=== PATIENT | male | born 1945 | race Caucasian/White ===

== ENCOUNTER 2018-03-14 19:24 | Inpatient (IN) | payer MEDICARE ==
[~2018-03-14 19:24] MED LIST: ISOVUE-370 76%-LOCM 1 ML ONE
[2018-03-14 19:45] LABS: #Eosinphils 0.1 thou/uL (0.0-0.7); #Lymphocytes 0.6 thou/uL (1.20-3.40); #Monocytes 0.5 thou/uL (0.11-0.59); #Neutrophils 7.2 thou/uL (1.40-6.50); %Basophils 0.5 % (0.0-1.0); %Eosinophils 0.8 % (0.0-10.0); %Lymphocytes 6.8 % (21.0-51.0); %Monocytes 5.6 % (0.0-10.0); %Neutrophils 86.3 % (42.0-75.0); Hemoglobin 11.1 g/dL (14.0-18.0); Mean Corpuscular HGB CONC 32.2 g/dL (32.0-36.0); Mean Corpuscular Volume 96.4 fL (78.0-98.0); Mean Platelet Volume 8.8 fL (7.4-10.4); Platelet Count 140 thou/uL (130-400); RBC Distribution Width 13.7 % (11.5-14.5); Red Blood Cell (RBC) Count 3.56 mill/uL (4.70-6.10); White Blood Cell (WBC) Count 8.3 thou/uL (4.8-10.8)
--- NOTE | 2018-03-14 19:45 | CT ---
CT BRAIN NONCONTRAST: DATE: 03/14/18 TIME: 7:30 p.m. HISTORY: 72-year-old male with acute stroke: Right sided facial droop and right facial paresis. Aphasia. Dr. Gamez gave verbal report for the stroke activation protocol to Dr. Nielsen of the Emergency Depart ment at 7:37 p.m. on 03/14/18. FINDINGS: There is no midline shift or any other mass effect. There is no evidence of acute intracranial hemor rhage, large cortical infarct, obstructive hydrocephalus, or extraaxial fluid collection. The calvar ium is intact. The bifrontal extra-axial spaces are enlarged, probably due to bilateral frontal lobe atrophy. IMPRESSION: No acute intracranial findings. Code HORTENCIA jn r POS: LADONNA
[2018-03-14 19:52] LABS: INR-International Normal Ratio 1.1; PTT 31.9 SEC (22.9-36.1); Prothrombin Time 14.1 SEC (12.0-14.7)
[2018-03-14 19:57] LABS: ALT (SGPT) 56 U/L (8-55); AST (SGOT) 25 U/L (5-34); Albumin 3.9 g/dL (3.4-4.8); Alkaline Phosphatase 105 U/L (40-150); Anion Gap 14 mmol/L (10-20); BUN (Urea Nitrogen) 16 mg/dL (8.4-25.7); Bilirubin, Total 1.2 mg/dL (0.2-1.2); Calc. Creatinine Clearance 0 mL/min (70-130); Calcium 9.4 mg/dL (7.8-10.44); Carbon Dioxide 27 mmol/L (23-31); Chloride 101 mmol/L (98-107); Estimated GFR-MDRD 75; Globulin 2.9 g/dL (2.4-3.5); Glucose 146 mg/dL (83-110); Potassium 3.3 mmol/L (3.5-5.1); Protein, Total 6.8 g/dL (5.8-8.1); Sodium 139 mmol/L (136-145)
[2018-03-14 20:01] LABS: CKMB 0.6 ng/mL (0-6.6); Troponin I Less than 0.010 ng/mL (< 0.028)
--- NOTE | 2018-03-14 21:34 | CT ---
CT ANGIOGRAM HEAD WITH CONTRAST CT ANGIOGRAM NECK WITH CONTRAST: DATE: 03/14/18 TIME: 8:39 p.m. HISTORY: 72-year-old male with acute stroke: right sided facial droop, right sided paralysis and aphasia. The patient is currently receiving IV TPA therapy. The findings for this stroke protocol study were called to Dr. Nielsen at 9:15 p.m. on 03/14/18. TECHNIQUE: IV contrast injection of Isovue. Arterial bolus chasing technique scan performed of the neck and head, to the vertex or the scalp. Unf ortunately, the scan does not include the aortic arch and does not include the origins of the brachio cephalic artery, left common carotid artery, or the left subclavian artery. Coronal and sagittal 3D MIP reconstructions. FINDINGS: There are bilateral pleural effusions that reach the lung apices. There are mild ground glass densiti es at the apical segments of bilateral upper lobes, probably representing pulmonary edema. No occlusion or high grade stenosis identified involving the visualized portions of the brachiocephal ic, left common carotid, or left subclavian, arteries (but there origins were not included on the sca n). There is multifocal calcified plaque in multiple major arteries. This includes the proximal left subclavian artery which causes mild stenosis. Also, streak artifact from dense contrast material in t he adjacent right subclavian vein partially obscures the proximal right common carotid artery. Prominent calcified plaque at the right carotid bulb causes approximately 75% stenosis of the origin of the right internal carotid (best appreciated on coronal image 57 of 102, series 300). The mid cerv ical portion of the right internal carotid artery takes a hairpin, tortuous turn. Heavy atherosclerotic calcification of right carotid siphon. No thrombus identified in the right murray tid siphon or M1 segment of right middle cerebral artery. Visualized portions of left common carotid artery demonstrate no high grade stenosis. There is calcif ied and noncalcified plaque at the left carotid bulb. There is approximately 50% stenosis at the orig in of the left external carotid artery. There is also an estimated 50% stenosis at the origin of the left internal carotid artery. Heavy atherosclerotic calcification of left carotid siphon makes it difficult to evaluate the caliber of the lumen there. No thrombus or occlusion or M1 segment of left middle cerebral artery identified . There is a gap in the contrast opacification of the origins of one or more branches of the trifurca tion of the left middle cerebral artery, probably representing acute thrombosis. Alternatively, this could be chronic severe stenoses. There is nonopacification of the proximal aspect of the cervical right vertebral artery. There is rec onstitution of the distal cervical portion of the right vertebral artery, presumably by muscular bran ch collateral vessels. No occlusion or severe stenosis of the contralateral left cervical vertebral artery. However, the pro ximal intracranial segment of the left vertebral artery does have filling defect surrounded by athero sclerotic calcification prior to its termination in PICA. No occlusion of the basilar artery or the p roximal aspects of the bilateral posterior cerebral and superior cerebellar arteries. IMPRESSION: 1. Probable thrombosis involving the proximal branches of the left middle cerebral artery trifur cation, but not involving M1 segment of the middle cerebral artery. 2. Severe, approximately 75% stenosis at origin of right internal carotid artery. 3. Approximately 50% stenosis at origin of left internal carotid artery. 4. 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 The distal right vertebral ar prudencio is reconstituted via muscular branches. 5. Left vertebral artery terminates in PICA (posterior-inferior cerebellar artery) where it appe ars to be probably chronically completely or partially occluded. 6. Bilateral pleural effusions and probable pulmonary edema. 7. The origins of the great vessels, and the entire aortic arch, were excluded from this study. POS: LADONNA
[2018-03-14] MEDS ORDERED: Acetaminophen 325 MG TAB PO PRN (21:57)
[2018-03-14] MEDS ORDERED: Ondansetron HCl/PF 4 MG/2 ML Vial IVP PRN (23:25)
[2018-03-14] MEDS ORDERED: Ondansetron ODT 4 MG TAB SL PRN (23:25)
[2018-03-14 23:38] VITALS: BMI 23.8
[2018-03-15] MEDS: Labetalol HCl 100 MG/20 ML VIAL SLOW IVP PRN ×3 (01:51→09:42)
--- NOTE | 2018-03-15 07:54 | HP ---
PRIMARY CARE PHYSICIAN: Out of town physician. CODE STATUS: FULL code. TIME OF EVALUATION: 9:50 p.m. CHIEF COMPLAINT: Right leg numbness and right-sided facial droop. HISTORY OF PRESENT ILLNESS: This is a 72-year-old male patient with past medical history of hypertension, AFib. The patient was on anticoagulation, had to be stopped since the patient had AV malformation and had GI bleeding recently. The patient in the afternoon was with his in the backyard. The noticed that suddenly something had changed to her , was unable to speak. He was not understanding what she was saying, not following her commands , and was unable to stand up. Then, she called 911. When they got to the scene , they found the patient has slurred speech and right-sided weakness. The patient was brought to the hospital. Symptoms were severe. The patient was diagnosed with acute stroke. Protocol was followed. The patient received tPA. No clear triggers, no alleviating factors. There were some findings positive for thrombosis on the CT angio. Dr. Ragsdale was consulted, decision was for not to go for any acute intervention at this point. We will follow recommendations from him. They are going to see the patient in the morning. The patient tolerated well tPA as of now. REVIEW OF SYSTEMS: Unable to obtain, the patient is aphasic. PAST MEDICAL HISTORY: History of AFib, hypertension, congestive heart failure, hyperlipidemia, chronic kidney disease. PAST SURGICAL HISTORY: Stomach surgery, cardiac stent, cholecystectomy. PSYCHIATRIC HISTORY: No previous psychiatric history. SOCIAL HISTORY: The patient drinks socially, former drinker. No drug use. Former cigarette user. He quit smoking more than 10 years ago. ALLERGIES: No known drug allergies. MEDICATIONS: Protonix 20 mg daily; folic acid 1 mg once daily; Lipitor 10 mg daily; metoprolol 50 mg extended release daily; digoxin 125 mcg once a day; allopurinol 300 mg once a day; Martha 180 mg as needed; diltiazem 24 hours extended-release capsule, the patient has 180 mg daily; Plavix 75 mg once a day ; ferrous sulfate 325 mg daily. PHYSICAL EXAMINATION: VITAL SIGNS: On presentation, blood pressure 162/101, heart rate 84, respiratory rate 16, temperature 98.1. GENERAL: The patient is alert, still having slurred speech, but after tPA was given, family is reporting that the patient seems to be improving since he was unable to understand in the beginning and now the patient follows commands. HEENT: Eyes, normal conjunctivae. Moist oral mucosa. RESPIRATORY: Bilateral air entry. No rales, no wheezing. Symmetric expansion. CARDIOVASCULAR: Normal rate, regular rhythm. No murmurs, no gallop, no edema. ABDOMEN: Soft. Normal bowel sounds. MUSCULOSKELETAL: Baseline range of motion and strength. No tenderness. SKIN: Warm and intact. No pallor, no rash, no redness. NEUROLOGIC: The patient was examined. The patient has recovered right lower extremity strength. Testing of the right upper extremity showed that he is having some weakness. The patient is still having aphasia. LABORATORY DATA: Reviewed. The patient had a white count of 9.3, hemoglobin 11.1, MCV 96.4, platelet count 140. Coagulation: PT 14.1, INR 1.1, PTT 31.9. Chemistry: The patient has sodium 139, potassium 3.3, chloride 101, carbon dioxide 27, anion gap 14, BUN 16, creatinine 0.98, GFR 75, glucose 146, ALT 56. Rest of LFTs are normal. RADIOLOGY REPORT: CT head was negative. No bleeding. CT angio showed carotid trifurcation of left coronary artery in one segment, diffuse carotid stenosis. ASSESSMENT AND PLAN: 1. Acute ischemic stroke, presentation with right-sided weakness and slurred speech. The patient received tPA. The patient is going to ICU for post-tPA monitoring. We will monitor blood pressure. The patient has tolerated well treatment. Neurosurgery to see the patient in the morning will follow recommendations , Neuro to see the patient as per protocol,will follow recommendations. 2. Hypertensive urgency. We will monitor blood pressure in ICU. We will try to keep it below 160/100 with IV p.r.n. medications. 3. Atrial fibrillation, rate and rhythm controlled. We will monitor. We will adjust treatment as needed. 4. History of arteriovenous malformation. At this point, we will not reconcile long-term anticoagulation, this decision is to be made after the patient is more stable. 5. Reportedly, history of congestive heart failure. Reconcile home medications. Adjust treatment as needed. 6. Hyperlipidemia. Advised to eat healthy, low-cholesterol diet. Reconcile home meds. 7. Deep venous thrombosis prophylaxis. 8. Hypokalemia. This is mild, potassium 3.3. Replace electrolytes as needed. 9. Chronic normocytic anemia. Hemoglobin 11.1, MCV is normal. I will have follow up as outpatient. No need for any acute intervention at this point. high risk due to tpa, acute stroke symtpoms, needing icu monitoring more than 35 min used at bedside, coordination of care, adn review and elaboration of records. MTDD
--- NOTE | 2018-03-15 09:47 | CON ---
DATE OF CONSULTATION: 03/15/2018 70 minutes time spent on consultation, of that time, greater than 50% of the time was spent with the patient and/or on the patient's unit in the hospital. . HISTORY OF PRESENT ILLNESS: This is a 72-year-old male who presented yesterday with an acute thrombo tic left MCA distribution stroke. He received t-PA. He has recovered right-sided weakness, but has persistent expressive aphasia. This is his first stroke. His tells me that he was diagnosed wi th a stomach AVM last month and the station tender made a difficult decision to hold his anticoag ulation. The patient has a history of atrial fibrillation and has been on Xarelto as well as rate co ntrol for that. PAST MEDICAL HISTORY: 1. Atrial fibrillation. 2. Gastric arteriovenous malformation. 3. Congestive heart failure. 4. Hyperlipidemia. 5. Chronic kidney disease. PAST SURGICAL HISTORY: 1. EGD. 2. Cardiac stent. 3. Cholecystectomy. SOCIAL HISTORY: He occasionally drinks alcohol. Former smoker, quit more than 10 years ago. ALLERGIES: None. MEDICATIONS PRIOR TO ADMISSION: Protonix, Lipitor, metoprolol, digoxin, allopurinol, Martha, dilti azem, Plavix, iron sulfate and aspirin. REVIEW OF SYSTEMS: Cannot be obtained due to the patient's expressive aphasia. PHYSICAL EXAMINATION: VITAL SIGNS: Temperature 98.1, pulse 83, blood pressure 154/77. GENERAL: He is awake and alert, follows commands appropriately, but cannot verbalize very well. HEENT: His cranial nerves II-XII are intact. Oropharynx is clear. NECK: No JVD. LUNGS: Clear. CARDIAC: S1, S2, slightly tachycardic. Irregularly irregular. ABDOMEN: Soft, nontender, nondistended. EXTREMITIES: No clubbing, cyanosis, or edema. NEUROLOGIC: He can move all 4 extremities. I do not detect any weakness other than his aphasic spee ch. LABORATORY DATA: White blood cell count 8.3, hematocrit 34.3, platelet count 140. INR 1.1. Sodium 139, potassium 3.3, chloride 101, CO2 27, BUN 16, creatinine 0.9, glucose 146. ASSESSMENT: 1. Acute left middle cerebral artery thrombotic stroke. 2. Chronic atrial fibrillation. 3. Recent colonic arteriovenous malformation. DISCUSSION: This could be an embolic stroke given the patient's history of atrial fibrillation and b eing off his usual anticoagulation with Xarelto. PLAN: 1. Continue to monitor in CCU today. 2. Resume whichever anticoagulant Neurology recommends. 3. Limit time out of bed for the time being. 4. Initiate stroke rehabilitation. 5. Resume antihypertensives.
--- NOTE | 2018-03-15 09:51 | PDOC.PN ---
- Subjective Encounter Start Date: 03/15/18 (f/u stroke) Encounter Start Time: 09:49 Subjective: s/p tpa that ended at 20;04 last night. Pt with aphasia and -: ataxia. He demonstrates understanding. He nods no with -: questions about pain - Objective Vital Signs & Weight: Vital Signs (12 hours) Temp Pulse Resp BP Pulse Ox 03/15/18 08:00 98.1 F 03/15/18 05:48 85 161/76 H 03/15/18 04:00 98.7 F 03/15/18 01:51 85 162/77 H 03/15/18 01:04 95 03/15/18 00:23 98.4 F 75 14 95 03/15/18 00:00 98.6 F Most Recent Monitor Data Heart Rate from ECG 83 NIBP 154/77 NIBP BP-Mean 109 Respiration from ECG 16 SpO2 96 I&O: 03/14/18 03/15/18 03/16/18 06:59 06:59 06:59 Output Total 650 0 Balance -650 0 Result Diagrams: 03/14/18 19:35 03/14/18 19:35 EKG Reviewed by me: Yes (tele - a fib 60-80's) Phys Exam - Physical Examination Constitutional: NAD Respiratory: no wheezing, no rales, no rhonchi Cardiovascular: no significant murmur, irregular Gastrointestinal: soft, non-tender, no distention, positive bowel sounds Musculoskeletal: no edema, pulses present Neurological: moves all 4 limbs Deviation from normal: responsive to commands, able to say yes/no, awake and alert Skin: no rash Dx/Plan (1) Ischemic cerebrovascular accident (CVA) Code(s): I63.9 - CEREBRAL INFARCTION, UNSPECIFIED Status: Acute (2) Atrial fibrillation Code(s): I48.91 - UNSPECIFIED ATRIAL FIBRILLATION Status: Chronic Qualifiers: Atrial fibrillation type: chronic Qualified Code(s): I48.2 - Chronic atrial fibrillation (3) History of GI bleed Code(s): Z87.19 - PERSONAL HISTORY OF OTHER DISEASES OF THE DIGESTIVE SYSTEM Status: Resolved (4) Hypertension Code(s): I10 - ESSENTIAL (PRIMARY) HYPERTENSION Status: Chronic Qualifiers: Hypertension type: essential hypertension Qualified Code(s): I10 - Essential (primary) hypertension (5) Dyslipidemia Code(s): E78.5 - HYPERLIPIDEMIA, UNSPECIFIED Status: Chronic - Plan * CVA s/p tpa that ended at 20:04 last night * Neurology consult= * continue statin * hold on aspirin until 24 hours, then depending on Neuro recs * stroke team/therapy * A fib - currently rate controlled, continue home meds when able to take PO * resume other home meds when cleared to take po * dvt prophy - scd's due to tpa * gi prophy - not indicated, takes protonix at home * code status Full. * * pt remains at high risk in current condition. Rviewed plan of care with patient/, no questions or further needs at end of eval.
--- NOTE | 2018-03-15 12:38 | RAD ---
PORTABLE AP ABDOMINAL RADIOGRAPH: DATE: 03/15/18. HISTORY: AVM clips. Evaluation prior to MRI. COMPARISON: None available. FINDINGS: Surgical clips overlie the right upper quadrant. There are 2 metallic densities overlying the left u pper quadrant which could also be related to postsurgical changes and clips related to prior surgery, but clinical correlation is recommended. Vascular stent overlies the region of the left common iliac artery. The bowel gas pattern is nonspec ific. Degenerative changes are noted in the spine. IMPRESSION: 1. Linear metallic densities overlying the left upper quadrant which may represent surgical clips re lated to prior surgery in this region, but clinical correlation is recommended. 2. Post cholecystectomy changes. 3. Nonspecific bowel gas pattern with a moderate amount of retained fecal material in the ascending colon. 4. Vascular stent overlying the left common iliac artery. 5. Vascular calcifications. POS: LADONNA
--- NOTE | 2018-03-15 16:18 | PDOC.EVN ---
Event Note - Event Note Event Note: Called by RN - MRI not available as pt has surgical clips in place from hospitalization for GI bleed. Request to the hospital these were placed is being sent to find out if pt can undergo MRI. Will hold on MRI and await Neurology input regarding necessity of this study vs f/u CT scan.
[2018-03-16 05:28] LABS: #Eosinphils 0.1 thou/uL (0.0-0.7); #Lymphocytes 0.6 thou/uL (1.20-3.40); #Monocytes 0.5 thou/uL (0.11-0.59); #Neutrophils 3.6 thou/uL (1.40-6.50); %Basophils 0.5 % (0.0-1.0); %Eosinophils 1.8 % (0.0-10.0); %Lymphocytes 13.1 % (21.0-51.0); %Monocytes 10.1 % (0.0-10.0); %Neutrophils 74.6 % (42.0-75.0); Hemoglobin 10.9 g/dL (14.0-18.0); Mean Corpuscular HGB CONC 31.9 g/dL (32.0-36.0); Mean Corpuscular Hemoglobin 30.5 pg (27.0-31.0); Mean Corpuscular Volume 95.7 fL (78.0-98.0); Platelet Count 121 thou/uL (130-400); RBC Distribution Width 13.7 % (11.5-14.5); Red Blood Cell (RBC) Count 3.57 mill/uL (4.70-6.10); White Blood Cell (WBC) Count 4.8 thou/uL (4.8-10.8)
[2018-03-16 05:47] LABS: ALT (SGPT) 30 U/L (8-55); AST (SGOT) 14 U/L (5-34); Albumin 3.5 g/dL (3.4-4.8); Alkaline Phosphatase 93 U/L (40-150); Anion Gap 12 mmol/L (10-20); BUN (Urea Nitrogen) 11 mg/dL (8.4-25.7); Bilirubin, Total 1.3 mg/dL (0.2-1.2); Calc. Creatinine Clearance 77 mL/min (70-130); Calcium 8.8 mg/dL (7.8-10.44); Carbon Dioxide 30 mmol/L (23-31); Cardiac Risk 3.9 (Less than 4.5); Chloride 100 mmol/L (98-107); Cholesterol 70 mg/dl (< 200 Desired); Estimated GFR-MDRD 76; Globulin 2.7 g/dL (2.4-3.5); Glucose 146 mg/dL (83-110); HDL Cholesterol 18 mg/dL (>60 Neg Risk); LDL Cholesterol, Calculated 38 mg/dL; Potassium 3.4 mmol/L (3.5-5.1); Protein, Total 6.2 g/dL (5.8-8.1); Sodium 139 mmol/L (136-145); Triglycerides 71 mg/dL (Less than 150)
[2018-03-16] MEDS ORDERED: Potassium Chloride 20 MEQ TAB PO SCH (07:45)
--- NOTE | 2018-03-16 07:50 | PRG ---
DATE OF SERVICE: 03/16/2018 SUBJECTIVE: The patient is doing well. He is starting to express himself a little better, but does have periods of expressive aphasia. He says he was cleared to swallow. OBJECTIVE: VITAL SIGNS: Temperature 98.1, pulse 115, blood pressure 145/102. A 24-hour intake 715, output 450. HEENT: Unremarkable. NECK: No JVD. LUNGS: Clear. CARDIAC: S1 and S2 regular. ABDOMEN: Soft, nontender. EXTREMITIES: No edema. NEUROLOGIC: I do not detect any neurologic deficits other than the expressive aphasia. LABORATORY DATA: White blood cell count 4.8, hematocrit 34.1, platelet count 121. INR 1.1. Sodium 139, potassium 3.4, chloride 100, CO2 30, BUN 11, creatinine 0.9, glucose 146. ASSESSMENT: 1. Cerebrovascular accident - left MCA distribution and required TPA. 2. Echo demonstrating sclerotic aortic valve, mitral regurgitation and EF of 50%-55%. RECOMMENDATIONS: I would consider restarting the anticoagulation if okay with Neuro. He will be tra nsferred out to the stroke floor for further care per the primary team and the stroke team. No furth er pulmonary recommendations. We will sign off. Please recall if further assistance is needed.
[2018-03-16] MEDS: Atorvastatin Calcium 10 MG TAB PO SCH (08:32)
[2018-03-16] MEDS: Digoxin 0.125 MG TAB PO SCH (08:32)
[2018-03-16] MEDS: Allopurinol 300 MG TAB PO SCH (08:33)
[2018-03-16] MEDS ORDERED: Clopidogrel Bisulfate 75 MG TAB PO SCH (13:30)
--- NOTE | 2018-03-16 19:23 | PDOC.PN ---
- Subjective Encounter Start Date: 03/16/18 Encounter Start Time: 13:00 Patient seen and examined for acute CVA. No new complaints. No new focal deficits. Some expressive aphasia. No overnight events - Objective Resuscitation Status: Resuscitation Status FULL:Full Resuscitation MAR Reviewed: Yes Vital Signs & Weight: Vital Signs (12 hours) Temp Pulse Pulse Pulse Resp BP BP 03/16/18 15:29 99.4 F 92 20 03/16/18 15:00 99.4 F 92 20 03/16/18 12:00 98.7 F 03/16/18 10:04 105 H 115 H 132/80 141/91 H 03/16/18 08:32 112 H 03/16/18 08:00 98.5 F 112 H 18 BP Pulse Ox 03/16/18 15:29 139/85 95 03/16/18 15:00 03/16/18 12:00 03/16/18 10:04 03/16/18 08:32 03/16/18 08:00 99 Weight Admit Weight 175 lb Weight 175 lb 4.28 oz Most Recent Monitor Data Heart Rate from ECG 86 NIBP 124/100 NIBP BP-Mean 111 Respiration from ECG 20 SpO2 99 I&O: 03/15/18 03/16/18 03/17/18 06:59 06:59 06:59 Intake Total 715 1190 Output Total 650 450 1 Balance -848 173 1830 Result Diagrams: 03/16/18 04:37 03/17/18 07:12 EKG Reviewed by me: Yes (Tele - Afib) Phys Exam - Physical Examination Constitutional: NAD Respiratory: no wheezing, no rales, no rhonchi, clear to auscultation bilateral Cardiovascular: no rub, irregular no heaves/pulsations Gastrointestinal: soft, non-tender, no distention, positive bowel sounds Musculoskeletal: no edema Neurological: non-focal, normal sensation, moves all 4 limbs Exp aphasia Psychiatric: normal affect, A&O x 3 Skin: no rash Dx/Plan (1) Acute CVA (cerebrovascular accident) Code(s): I63.9 - CEREBRAL INFARCTION, UNSPECIFIED Status: Acute Comment: s/ p TPA. Pt was taking Plavix. (2) Chronic a-fib Code(s): I48.2 - CHRONIC ATRIAL FIBRILLATION Status: Chronic (3) Hypertension Code(s): I10 - ESSENTIAL (PRIMARY) HYPERTENSION Status: Chronic Qualifiers: Hypertension type: essential hypertension Qualified Code(s): I10 - Essential (primary) hypertension (4) History of GI bleed Code(s): Z87.19 - PERSONAL HISTORY OF OTHER DISEASES OF THE DIGESTIVE SYSTEM Comment: s/p EGD with AVM clipping on February 22. Xarelto was dced. Started on Plavix Also d/w Dr Stroud (GI) - He recommended to go with Neurology recommendation depending on the benefit and risk (5) Hypokalemia Code(s): E87.6 - HYPOKALEMIA Status: Acute - Plan DVT proph w/SCDs Spouse has EGD report(AVM clips) - Will try to see if MRI brain can be done -: One dose Plavix given earlier today after d/w Dr Whiting -: Restart Xarelto in AM per Dr Whiting, Replace Potassium -: Transfer to stroke unit, Change Cardizem timings to 1200 (home dose) -: Change Toprol XL to 100 QAM and 50 QPM (home dose) Review of Systems - Review of Systems Respiratory: negative: Cough, Dry, Shortness of Breath, Hemoptysis, SOB with Excertion, Pleuritic Pain, Sputum, Wheezing Cardiovascular: negative: chest pain, palpitations, orthopnea, paroxysmal nocturnal dyspnea, edema, light headedness, other - Medications/Allergies Allergies/Adverse Reactions: Allergies Allergy/AdvReac Type Severity Reaction Status Date / Time No Known Drug Allergies Allergy Verified 03/17/18 06:11 Medications: Current Medications Acetaminophen (Tylenol) 650 mg PO Q6H PRN PRN Reason: Headache/Fever or Pain Allopurinol (Zyloprim) 300 mg PO DAILY [facility] Last Admin: 03/16/18 08:33 Dose: 300 mg Atorvastatin Calcium (Lipitor) 10 mg PO DAILY [facility] Last Admin: 03/16/18 08:32 Dose: 10 mg Digoxin (Lanoxin) 0.125 mg PO DAILY [facility] Last Admin: 03/16/18 08:32 Dose: 0.125 mg Diltiazem HCl (Cardizem Cd) 180 mg PO 1200 [facility] Last Admin: 03/16/18 13:25 Dose: Not Given Labetalol HCl (Normodyne) 10 mg SLOW IVP Q2H PRN PRN Reason: SBP > 180 Last Admin: 03/15/18 09:42 Dose: 10 mg Metoprolol Succinate (Toprol Xl) 100 mg PO DAILY [facility] Metoprolol Succinate (Toprol Xl) 50 mg PO HS [facility] Olmesartan (Benicar) 20 mg PO HS [facility] Pantoprazole Sodium (Protonix) 40 mg PO DAILY [facility]
[2018-03-17] MEDS: Rivaroxaban 10 MG TAB PO SCH (06:09)
[2018-03-17 07:50] LABS: Albumin 3.7 g/dL (3.4-4.8); Anion Gap 12 mmol/L (10-20); BUN (Urea Nitrogen) 11 mg/dL (8.4-25.7); BUN/Creatinine Ratio 12.09; Calc. Creatinine Clearance 83 mL/min (70-130); Calcium 9.2 mg/dL (7.8-10.44); Carbon Dioxide 29 mmol/L (23-31); Chloride 100 mmol/L (98-107); Estimated GFR-MDRD 82; Glucose 163 mg/dL (83-110); Magnesium 1.9 mg/dL (1.6-2.6); Potassium 3.9 mmol/L (3.5-5.1); Sodium 137 mmol/L (136-145)
[2018-03-17 08:14] LABS: #Eosinphils 0.1 thou/uL (0.0-0.7); #Lymphocytes 0.5 thou/uL (1.20-3.40); #Monocytes 0.5 thou/uL (0.11-0.59); #Neutrophils 4.8 thou/uL (1.40-6.50); %Eosinophils 1.3 % (0.0-10.0); %Lymphocytes 8.9 % (21.0-51.0); %Monocytes 8.6 % (0.0-10.0); %Neutrophils 81.2 % (42.0-75.0); Hemoglobin 10.9 g/dL (14.0-18.0); Mean Corpuscular Hemoglobin 31.2 pg (27.0-31.0); Mean Corpuscular Volume 94.6 fL (78.0-98.0); Mean Platelet Volume 8.5 fL (7.4-10.4); Platelet Count 107 thou/uL (130-400); RBC Distribution Width 13.7 % (11.5-14.5); Red Blood Cell (RBC) Count 3.49 mill/uL (4.70-6.10); White Blood Cell (WBC) Count 5.9 thou/uL (4.8-10.8)
[2018-03-17] MEDS: Atorvastatin Calcium 10 MG TAB PO SCH (08:39)
[2018-03-17] MEDS: Digoxin 0.125 MG TAB PO SCH (08:39)
[2018-03-17] MEDS: Allopurinol 300 MG TAB PO SCH (08:40)
[2018-03-17] MEDS ORDERED: traMADol HCl 50 MG TAB PO PRN (13:21)
--- NOTE | 2018-03-17 13:24 | PDOC.PN ---
- Subjective Encounter Start Date: 03/17/18 Encounter Start Time: 13:25 Patient seen and examined. had CVA and is s/p TPA. Doing well. no complaints. Xarelto restarted 03/17/18. - Objective Resuscitation Status: Resuscitation Status FULL:Full Resuscitation MAR Reviewed: Yes Vital Signs & Weight: Vital Signs (12 hours) Temp Pulse Resp BP Pulse Ox 03/17/18 12:00 98.3 F 84 18 161/77 H 96 03/17/18 08:39 76 03/17/18 08:00 99.3 F 61 18 03/17/18 07:40 99.3 F 61 18 156/73 H 93 L 03/17/18 04:00 97.3 F L 93 18 136/80 93 L Weight Admit Weight 175 lb Weight 175 lb 4.28 oz Most Recent Monitor Data Heart Rate from ECG 86 NIBP 124/100 NIBP BP-Mean 111 Respiration from ECG 20 SpO2 99 I&O: 03/16/18 03/17/18 03/18/18 06:59 06:59 06:59 Intake Total 715 1190 Output Total 450 1 Balance 265 1189 Result Diagrams: 03/17/18 07:12 03/17/18 07:12 Phys Exam - Physical Examination Constitutional: NAD HEENT: moist MMs, sclera anicteric Neck: supple, full ROM Respiratory: no wheezing, no rales, no rhonchi, clear to auscultation bilateral Cardiovascular: RRR, no significant murmur, no rub Gastrointestinal: soft, non-tender, no distention, positive bowel sounds Musculoskeletal: no edema, pulses present Neurological: non-focal, moves all 4 limbs + expressive aphasia Psychiatric: normal affect, A&O x 3 Skin: no rash, normal turgor Dx/Plan (1) Ischemic cerebrovascular accident (CVA) Code(s): I63.9 - CEREBRAL INFARCTION, UNSPECIFIED Status: Acute Comment: s/ p TPA. Started on Xarelto. Stable. (2) Atrial fibrillation Code(s): I48.91 - UNSPECIFIED ATRIAL FIBRILLATION Status: Chronic Qualifiers: Atrial fibrillation type: chronic Qualified Code(s): I48.2 - Chronic atrial fibrillation Plan: As above. (3) Dyslipidemia Code(s): E78.5 - HYPERLIPIDEMIA, UNSPECIFIED Status: Chronic (4) History of GI bleed Code(s): Z87.19 - PERSONAL HISTORY OF OTHER DISEASES OF THE DIGESTIVE SYSTEM Status: Chronic Comment: s/p EGD with AVM clipping on February 22. Xarelto was dced then and pt started on Plavix. Xarelto restarted following CVA. (5) Hypertension Code(s): I10 - ESSENTIAL (PRIMARY) HYPERTENSION Status: Chronic Qualifiers: Hypertension type: essential hypertension Qualified Code(s): I10 - Essential (primary) hypertension Comment: Fair control. monitor. - Plan cont current plan of care, out of bed/ambulate * . Review of Systems - Medications/Allergies Allergies/Adverse Reactions: Allergies Allergy/AdvReac Type Severity Reaction Status Date / Time No Known Drug Allergies Allergy Verified 03/17/18 06:11 Medications: Current Medications Acetaminophen (Tylenol) 650 mg PO Q6H PRN PRN Reason: Headache/Fever or Pain Allopurinol (Zyloprim) 300 mg PO DAILY [facility] Last Admin: 03/17/18 08:40 Dose: 300 mg Atorvastatin Calcium (Lipitor) 10 mg PO DAILY [facility] Last Admin: 03/17/18 08:39 Dose: 10 mg Digoxin (Lanoxin) 0.125 mg PO DAILY [facility] Last Admin: 03/17/18 08:39 Dose: 0.125 mg Diltiazem HCl (Cardizem Cd) 180 mg PO 1200 [facility] Last Admin: 03/17/18 11:36 Dose: 180 mg Labetalol HCl (Normodyne) 10 mg SLOW IVP Q2H PRN PRN Reason: SBP > 180 Last Admin: 03/15/18 09:42 Dose: 10 mg Metoprolol Succinate (Toprol Xl) 100 mg PO DAILY [facility] Last Admin: 03/17/18 08:40 Dose: 100 mg Metoprolol Succinate (Toprol Xl) 50 mg PO HS [facility] Last Admin: 03/16/18 21:11 Dose: 50 mg Olmesartan (Benicar) 20 mg PO HS [facility] Last Admin: 03/16/18 21:11 Dose: 20 mg Pantoprazole Sodium (Protonix) 40 mg PO DAILY [facility] Last Admin: 03/17/18 08:40 Dose: 40 mg Rivaroxaban (Xarelto) 20 mg PO 0600 [facility] Last Admin: 03/17/18 06:09 Dose: 20 mg
--- NOTE | 2018-03-17 17:04 | PRG ---
DATE OF SERVICE: 03/17/2018 SERVICE: Pulmonary Medicine INTERVAL HISTORY: The patient is doing great from a respiratory standpoint. He has a little bit of a cough. It happens whenever he is lying down, but it is not associated with exertion or eating. He denies any current fevers, chills, nausea or vomiting. There are no significant overnight events. He is essentially returning to his usual state of health and is still having a little bit of word fin ding difficulties. PHYSICAL EXAMINATION: VITAL SIGNS: Afebrile, pulse 84, blood pressure 161/77, respirations 18, saturation 96% on room air. GENERAL: The patient is awake, alert, no apparent distress. LUNGS: Decent air entry. Dependent crackles are minimal. There is no prolonged expiratory phase pr esent. HEART: Normal rate, regular. ABDOMEN: Soft, nontender, nondistended. Bowel sounds are positive. MUSCULOSKELETAL: No cyanosis or clubbing. No pitting in the bilateral lower extremities. LABORATORY DATA: WBC 5.9, hemoglobin 10.9, platelets 107,000 and gently down trending. INR 1.1. sic metabolic profile is essentially unremarkable. Albumin 3.7. Magnesium and phosphorus fall withi n the normal limits. ASSESSMENT: Cerebrovascular accident, status post TPA. DISCUSSION AND PLAN: At this point, the patient is stable for transition home from purely respirator y perspective: He has no further requirements for inpatient Pulmonary Critical Care opinion and I wi ll sign off. Please call with additional questions or concerns moving forward.
[2018-03-18] MEDS: Rivaroxaban 10 MG TAB PO SCH (05:39)
[2018-03-18 06:18] LABS: #Lymphocytes 0.6 thou/uL (1.20-3.40); #Monocytes 0.5 thou/uL (0.11-0.59); #Neutrophils 5.1 thou/uL (1.40-6.50); %Basophils 0.2 % (0.0-1.0); %Eosinophils 0.8 % (0.0-10.0); %Lymphocytes 9.3 % (21.0-51.0); %Neutrophils 81.6 % (42.0-75.0); Hemoglobin 10.9 g/dL (14.0-18.0); Mean Corpuscular HGB CONC 32.9 g/dL (32.0-36.0); Mean Corpuscular Hemoglobin 31.2 pg (27.0-31.0); Mean Corpuscular Volume 94.9 fL (78.0-98.0); Mean Platelet Volume 9.2 fL (7.4-10.4); Platelet Count 120 thou/uL (130-400); RBC Distribution Width 13.5 % (11.5-14.5); White Blood Cell (WBC) Count 6.3 thou/uL (4.8-10.8)
[2018-03-18 06:48] LABS: Albumin 3.6 g/dL (3.4-4.8); Anion Gap 13 mmol/L (10-20); BUN (Urea Nitrogen) 10 mg/dL (8.4-25.7); BUN/Creatinine Ratio 11.49; Calc. Creatinine Clearance 86 mL/min (70-130); Carbon Dioxide 27 mmol/L (23-31); Chloride 100 mmol/L (98-107); Estimated GFR-MDRD 86; Glucose 151 mg/dL (83-110); Magnesium 2.1 mg/dL (1.6-2.6); Phosphorus 3.3 mg/dL (2.3-4.7); Potassium 3.8 mmol/L (3.5-5.1); Sodium 136 mmol/L (136-145)
--- NOTE | 2018-03-18 06:54 | CON ---
DATE OF CONSULTATION: 03/16/2018 REFERRING PROVIDER: Theodore Orourke M.D. REASON FOR CONSULTATION: Aphasia. HISTORY OF PRESENT ILLNESS: Mr. Dennis is a pleasant 72-year-old male who has been con sulted for evaluation of aphasia. History is obtained from who was present at bedside. re ports that on day before yesterday, the patient started having sudden onset of word finding difficult y. She also noticed that he was weak all over and not able to move both upper and lower extremities. She immediately called EMS and patient was brought to the [facility]. On arrival to the [facility], patient had a CT head without contrast and CT angiogram of the head a nd neck for which a CT head showed no acute intracranial normality, CT angiogram of the head and neck showed a thrombus involving the proximal branches of the left middle cerebral artery and 75% stenosi s of the right internal carotid artery and 50% stenosis of the origin of the left internal carotid ar prudencio. For this reason, discussion was made to give tPA. After a lengthy discussion with the patient and his , tPA was given, patient was admitted to the critical care unit. reports that [facility] have receiving the IV tPA, his symptoms have improved. His strength in both upper extremities as m uch better today. She also notes that his speech was improving today, although over the past 1 hour, she feels his speech is getting worse. She states that he was recently diagnosed with atrial fibril lation for which he was started on Xarelto. He had a drop in his hematocrit and thus he had undergon e GI and endoscopy and was found to have AVM in his stomach. He had undergone clipping for this AVM and at that time, his Xarelto was discontinued. He was started on Plavix. PAST MEDICAL HISTORY: Reviewed and they are as dictated in H and P note done by Dr. Theodore Orourke on 03/18/2018. PAST SURGICAL HISTORY: Reviewed and they are as dictated in H and P note done by Dr. Theodore Orourke on 03/18/2018. FAMILY HISTORY: Reviewed and they are as dictated in H and P note done by Dr. Theodore Orourke on . SOCIAL HISTORY: Reviewed and they are as dictated in H and P note done by Dr. Theodore Orourke on . CURRENT MEDICATIONS: Reviewed and they are as dictated in H and P note done by Dr. Theodore roberson n 03/18/2018. ALLERGIES: Reviewed and they are as dictated in H and P note done by Dr. Theodore Orourke on 03/18/20 18. REVIEW OF SYSTEMS: As mentioned above in the HPI, otherwise negative. PHYSICAL EXAMINATION: VITAL SIGNS: Blood pressure of 161/87, pulse of 115 and irregular, respirations of 18 with O2 sats o f 96% on room air, T-max of 98.5. GENERAL: Well-developed, well-nourished male in no apparent distress. RESPIRATORY: Clear to auscultation bilaterally. CARDIOVASCULAR: Irregular rate and rhythm. NEUROLOGIC: Mental status: The patient is awake, alert, oriented x2. Speech and language: He has mild to moderate expressive aphasia. Cranial nerves: Pupils are 3 mm and reactive. Visual mackay a re intact. External muscles are intact. No nystagmus is noted. Face is symmetric. Tongue and uvul a are midline. Motor exam showed normal tone and bulk with a 5/5 strength in both upper and lower ex tremities. Sensory: Sensation is intact and symmetric. Deep tendon reflexes, 2+ reflexes in both u pper and lower extremities. Babinski: Plantar responses flexion bilaterally. Coordination intact t o [id number] and finger tapping bilaterally. LABORATORY DATA: Reviewed, which included CBC, coag panel, CMP, which is significant for hemoglobin 10.9, hematocrit of 34.1, platelet count of 121, potassium of 3.4, glucose of 146, otherwise unremark able. IMAGING STUDIES: CT head without contrast was reviewed, which showed no acute intracranial abnormali ty. CT angiogram results were reviewed. Findings are as noted in the HPI section. IMPRESSION: 1. Left middle cerebral artery distribution ischemic infarct. 2. Aphasia, due to #1. 3. Atrial fibrillation. 4. Recent gastrointestinal bleed post arteriovenous malformation clipping. Mr. Dennis is a pleasant 72-year-old male who present with acute onset of weakness and aphasia. He was given IV tPA, which has had improved the strength and speech, although he has some w orsening in the past 1 hour. This recent event is likely secondary to chronic atrial fibrillation, t his resulting in cardioembolic stroke. I would recommend continuing current medical management. I w ould recommend consulting PT, OT, speech therapy. I had a long discussion with the patient's an d patient regarding anticoagulation therapy given his recent history of GI bleed and post-AVM clippin g. I have explained that the risk for starting on anticoagulation therapy increases his risk for int ernal gastrointestinal bleed. I have also explained that the by holding off an anticoagulation juan dominguez is at high risk for having another cardioembolic stroke. I have explained that given that the ris k from stroke and post-recovery is higher than anemia which can be treated with infusion. I would st trae recommend starting him on anticoagulation therapy with Xarelto. I have explained that the ris k for having a stroke after having a first stroke is very high in the first 30 days post-stroke. Aft er a lengthy discussion and answering all their questions, the patient and his have decided that they want to go with starting initiation of anticoagulation therapy. I would recommend starting him on Xarelto 20 mg once a day. He will need follow up with his GI as well as system safety engineer as outpatie nt in less than 1 week. No further neurological workup needed from my standpoint. Thank you for the consultation.
[2018-03-18] MEDS: Allopurinol 300 MG TAB PO SCH (09:18)
[2018-03-18] MEDS: Digoxin 0.125 MG TAB PO SCH (09:19)
[2018-03-18] MEDS: Atorvastatin Calcium 10 MG TAB PO SCH (10:20)
--- NOTE | 2018-03-18 12:02 | PDOC.PN ---
- Subjective Encounter Start Date: 03/18/18 Encounter Start Time: 12:02 Patient seen and examined. Admitted for CVA and is s/p TPA. Xarelto restarted . No new complaints. No acute events overnight. - Objective Resuscitation Status: Resuscitation Status FULL:Full Resuscitation Vital Signs & Weight: Vital Signs (12 hours) Temp Pulse Pulse Pulse Resp BP BP 03/18/18 11:35 97.8 F 91 18 03/18/18 10:51 88 89 196/83 H 142/73 H 03/18/18 09:19 101 H 03/18/18 07:40 99.1 F 72 18 03/18/18 03:15 99.7 F H 94 20 BP BP Pulse Ox 03/18/18 11:35 145/71 H 95 03/18/18 10:51 03/18/18 09:19 03/18/18 07:40 155/87 H 95 03/18/18 03:15 153/68 H 92 L Weight Admit Weight 175 lb Weight 175 lb 4.28 oz Most Recent Monitor Data Heart Rate from ECG 86 NIBP 124/100 NIBP BP-Mean 111 Respiration from ECG 20 SpO2 99 I&O: 03/17/18 03/18/18 03/19/18 06:59 06:59 06:59 Intake Total 1190 200 Output Total 1 Balance 1189 200 Result Diagrams: 03/18/18 05:43 03/18/18 05:43 Phys Exam - Physical Examination Constitutional: NAD HEENT: moist MMs, sclera anicteric Neck: supple, full ROM Respiratory: no wheezing, no rales, no rhonchi, clear to auscultation bilateral Cardiovascular: RRR, no significant murmur, no rub Gastrointestinal: soft, non-tender, no distention, positive bowel sounds Musculoskeletal: no edema, pulses present Neurological: non-focal Psychiatric: normal affect, A&O x 3 Skin: no rash, normal turgor Dx/Plan (1) Ischemic cerebrovascular accident (CVA) Code(s): I63.9 - CEREBRAL INFARCTION, UNSPECIFIED Status: Acute Comment: Stable s/p TPA. Started on Xarelto. (2) Atrial fibrillation Code(s): I48.91 - UNSPECIFIED ATRIAL FIBRILLATION Status: Chronic Qualifiers: Atrial fibrillation type: chronic Qualified Code(s): I48.2 - Chronic atrial fibrillation Comment: Stable. Rate controlled. (3) Dyslipidemia Code(s): E78.5 - HYPERLIPIDEMIA, UNSPECIFIED Status: Chronic (4) History of GI bleed Code(s): Z87.19 - PERSONAL HISTORY OF OTHER DISEASES OF THE DIGESTIVE SYSTEM Status: Chronic Comment: s/p EGD with AVM clipping on February 22. Xarelto discontinued then and pt started on Plavix. Xarelto restarted following CVA. (5) Hypertension Code(s): I10 - ESSENTIAL (PRIMARY) HYPERTENSION Status: Chronic Qualifiers: Hypertension type: essential hypertension Qualified Code(s): I10 - Essential (primary) hypertension Comment: Fair control. monitor. - Plan cont current plan of care, plan discussed w/ family, PT/OT, web content & social media manager, speech therapy, out of bed/ambulate * . Review of Systems - Medications/Allergies Allergies/Adverse Reactions: Allergies Allergy/AdvReac Type Severity Reaction Status Date / Time No Known Drug Allergies Allergy Verified 03/17/18 06:11 Medications: Current Medications Acetaminophen (Tylenol) 650 mg PO Q6H PRN PRN Reason: Headache/Fever or Pain Allopurinol (Zyloprim) 300 mg PO DAILY [facility] Last Admin: 03/18/18 09:18 Dose: 300 mg Atorvastatin Calcium (Lipitor) 10 mg PO HS [facility] Digoxin (Lanoxin) 0.125 mg PO DAILY [facility] Last Admin: 03/18/18 09:19 Dose: 0.125 mg Diltiazem HCl (Cardizem Cd) 180 mg PO 1200 [facility] Last Admin: 03/17/18 11:36 Dose: 180 mg Labetalol HCl (Normodyne) 10 mg SLOW IVP Q2H PRN PRN Reason: SBP > 180 Last Admin: 03/15/18 09:42 Dose: 10 mg Metoprolol Succinate (Toprol Xl) 100 mg PO DAILY [facility] Last Admin: 03/18/18 09:19 Dose: 100 mg Metoprolol Succinate (Toprol Xl) 50 mg PO HS [facility] Last Admin: 03/17/18 20:19 Dose: 50 mg Olmesartan (Benicar) 20 mg PO HS [facility] Last Admin: 03/17/18 20:19 Dose: 20 mg Pantoprazole Sodium (Protonix) 40 mg PO DAILY [facility] Last Admin: 03/18/18 09:20 Dose: 40 mg Rivaroxaban (Xarelto) 20 mg PO 0600 [facility] Last Admin: 03/18/18 05:39 Dose: 20 mg Tramadol HCl (Ultram) 50 mg PO Q6H PRN PRN Reason: Moderate Pain (4-6)
[2018-03-18 16:10] VITALS: BP 135/66
[2018-03-18 16:56] VITALS: TEMP 98.8
--- NOTE | 2018-03-18 20:03 | PRG ---
DATE OF SERVICE: 03/18/2018 SUBJECTIVE: Mr. Dennis is a pleasant 72-year-old male with a history of atrial fibrill ation and recent GI AVM post-clipping presented with an acute onset of aphasia and upper and lower ex tremity weakness. He was given IV TPA on arrival to the emergency room. Per , who was present a t bedside, reports that there has been significant improvement in his strength. His speech is also i mproving, although he tends to have difficulty with getting some words out as well as substitution of words. He has not complained of any headache, chest pain, palpitation, nausea, vomiting, abdominal pain. PHYSICAL EXAMINATION: VITAL SIGNS: Blood pressure of 134/66, pulse of 81, temperature of 99.8, respirations of 18, O2 sats of 92% on room air. GENERAL: Well-developed, well-nourished male, in no apparent distress. RESPIRATORY: Clear to auscultation bilaterally. CARDIOVASCULAR: Regular rate and rhythm. NEUROLOGIC: Essentially unchanged when compared to day before yesterday. There is a slight improvem ent in his speech. Motor exam showed normal tone and bulk with a 5/5 strength in both upper and lowe r extremities. Sensory: Sensation is intact and symmetric. IMPRESSION: 1. Left middle cerebral artery distribution ischemic infarct. 2. Chronic atrial fibrillation. 3. Gastrointestinal arteriovenous malformations post clipping. Mr. Dennis is a pleasant 72-year-old male who presented with an acute onset of aphasia and weakness. He is status post IV TPA. He has been started on Xarelto. There has not been any sig nificant change in his hemoglobin and hematocrit. I have advised him to continue Xarelto for seconda ry stroke prevention. He will follow up with his bereavement counselor and PCP within 1 week. Thank you for consultation.
--- NOTE | 2018-03-18 20:09 | DIS ---
DATE OF ADMISSION: 03/14/2018 DATE OF DISCHARGE: 03/18/2018 HISTORY OF PRESENT ILLNESS AND HOSPITAL COURSE: Mr. Jeannie Roth is a 72- year-old male with a history of hypertension and atrial fibrillation, who was on anticoagulation, but was discontinued due to AV malformation and recent GI bleed. He was then placed on Plavix instead. On the day of admission, he was with his in his backyard and she suddenly noticed a change as her was unable to speak. He was unable to understand what she was saying, was not following command, and was unable to stand up. She then called 911. On arrival at the scene, he was found to have slurred speech and right hemiparesis , and he was then brought to the emergency room. A CT head was done and he was found to have acute stroke and vertigo as well as the patient received tPA. Neurology was also consulted. The patient was monitored in the hospital and he improved with therapy gradually regaining his strength, but still had some speech deficits. He was eventually started on Xarelto as well due to the benefits outweighing the risk. Family discussion was had and they agreed that he needed to be on Xarelto. The patient was then discharged with outpatient speech therapy. DISCHARGE MEDICATIONS: Benicar 20 mg at bedtime, Xarelto 20 mg daily, diltiazem 180 mg daily, allopurinol 300 mg daily, Toprol-XL 100 mg q.a.m. and 50 mg at bedtime, folic acid 1 mg daily, atorvastatin 10 mg daily, pantoprazole 20 mg daily, Martha Allergy 180 mg daily, ferrous sulfate 325 mg daily, digoxin 125 mcg daily. PHYSICAL EXAMINATION: He was examined on the day of discharge. For details, refer to progress note on 03/18/2018. LABORATORY DATA: WBC 6.3, hemoglobin 10.9, platelet count 120. Sodium 136, potassium 3.8, chloride 100, carbon dioxide 27, anion gap 13, BUN 10, creatinine 0.87, glucose 151, calcium 9. IMAGING: Abdominal x-ray showed linear metallic density- represent surgical clips related to prior surgery in this region, clinical correlation recommended. Nonspecific bowel gas pattern with moderate amount of fecal material in the ascending colon, vascular calcifications. Brain CT, CT angio, CT [place] [facility] [place], angio with contrast. Echocardiograph. CONSULTATION: Neurology. CONDITION AT DISCHARGE: Stable and improved. DIET: Heart healthy, low sodium. ACTIVITY: To resume as tolerated. To get outpatient MORTAR WORKER. CARE GOALS: To follow up with primary care physician within 1 week of discharge. DISCHARGE TIME: 55 minutes including chart review and documentation. RANDEE
[2018-03-18] MEDS ORDERED: Atorvastatin Calcium 10 MG TAB PO SCH (21:00)
== END 2018-03-18 17:25 | disposition home or self-care (01) | DRG 62 ==
LOC: ERS 19:24 → CCU 21:37 → 2SE 03-16 14:21
PROVIDERS: ADMIT Hospitalist; ATTEND Hospitalist
DX: I63.9 Cerebral infarction, unspecified (principal); I13.0 Hypertensive heart and chronic kidney disease with heart failure and stage 1 through stage 4 chronic kidney disease, or unspecified chronic kidney disease; R20.0 Anesthesia of skin; R29.810 Facial weakness; I10 Essential (primary) hypertension; E78.5 Hyperlipidemia, unspecified; Z87.891 Personal history of nicotine dependence; E87.6 Hypokalemia; I16.0 Hypertensive urgency; R47.01 Aphasia; N18.3 Chronic kidney disease, stage 3 (moderate); I25.10 Atherosclerotic heart disease of native coronary artery without angina pectoris; Z95.5 Presence of coronary angioplasty implant and graft; I50.9 Heart failure, unspecified; Z79.899 Other long term (current) drug therapy; Z79.02 Long term (current) use of antithrombotics/antiplatelets; D64.9 Anemia, unspecified; Z79.82 Long term (current) use of aspirin; I48.2 Chronic atrial fibrillation
CPT/HCPCS: 36415; 36416; 70450; 70496; 70498; 74018; 80053; 80061; 80069; 82553; 83735; 84484; 85025; 85610; 85730; 86850; 86900; 86901; 93005; 93306; 94760; 96365; 96366; 96376; G8978-GP-CJ; G8979-GP-CH; G8987-GO-CI; G8988-GO-CH; G8996-GN-CI; G8997-GN-CH; J2997